=== PATIENT | male | born 1985 | race Caucasian/White ===

== ENCOUNTER 2022-01-18 13:30 | Emergency (ER) | payer OTHER | END 2022-01-18 17:04 | disposition home or self-care (01) | LOC: FER 13:30 | DX: S61.011A Laceration without foreign body of right thumb without damage to nail, initial encounter (principal); F17.210 Nicotine dependence, cigarettes, uncomplicated; W27.4XXA Contact with kitchen utensil, initial encounter; Y92.89 Other specified places as the place of occurrence of the external cause; Y99.0 Civilian activity done for income or pay; Z28.310 Unvaccinated for COVID-19 | CPT/HCPCS: 99283 ==